=== PATIENT | female | born 1970 | race African-American/Black ===

== ENCOUNTER 2018-04-24 10:58 | Emergency (ER) | payer BC, SELFPAY ==
[2018-04-24] MEDS ORDERED: Ibuprofen 800 MG TAB ONE (12:06)
== END 2018-04-24 12:09 | disposition home or self-care (01) ==
LOC: ERS 10:58
DX: J02.9 Acute pharyngitis, unspecified (principal); F32.9 Major depressive disorder, single episode, unspecified; F41.9 Anxiety disorder, unspecified; F17.210 Nicotine dependence, cigarettes, uncomplicated
CPT/HCPCS: 87081; 87430; 87804; 99283